=== PATIENT | female | born 1970 | race African-American/Black ===

== ENCOUNTER 2017-06-17 15:01 | Observation (INO) ==
[2017-06-17] MEDS ORDERED: NITROGLYCERIN SL 0.4 MG TABLET SL PRN (15:16)
[2017-06-17] MEDS ORDERED: ASPIRIN 325 MG TABLET PO STA (15:16)
[2017-06-17] MEDS ORDERED: ONDANSETRON 4 MG/2 ML VIAL IV PRN ×2 (15:16→18:49)
[2017-06-17] MEDS ORDERED: ENOXAPARIN 100 MG/ML SYRINGE SUBCUT STA (15:16)
[2017-06-17] MEDS ORDERED: NITROGLYCERIN 2% OINT 1 INCH/GM PACK TOP STA (15:16)
--- NOTE | 2017-06-17 15:22 | EKG Report ---
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
[2017-06-17] MEDS ORDERED: METOPROLOL TARTRATE 5 MG/5 ML VIAL IV SCH (15:30)
[2017-06-17] MEDS ORDERED: ENOXAPARIN 120 MG/0.8 ML SYRINGE SUBCUT ONE (15:44)
[2017-06-17] MEDS ORDERED: NITROGLYCERIN 2% OINT 1 INCH/GM PACK TOP ONE (15:44)
[2017-06-17] MEDS ORDERED: METOPROLOL TARTRATE 5 MG/5 ML VIAL IV ONE (15:44)
[2017-06-17] MEDS ORDERED: ASPIRIN 325 MG TABLET ONE (15:44)
--- NOTE | 2017-06-17 15:47 | XRay Report ---
XR chest 2V Indication: Chest pain. Comparison: Chest x-ray 11/18/2015 Technique: PA and lateral chest x-ray was performed. Findings: Heart size, mediastinal contour, and hilar structures demonstrate no significant abnormalities. The lung parenchyma is clear. Bones and soft tissues demonstrate no significant abnormalities. Impression: 1. No active cardiopulmonary disease. 06/17/2017 3:44 PM PROCEDURE INTERPRETED AT [facility] DEPARTMENT OF RADIOLOGY Final Report Signed by: Dr. Loyd Al
[2017-06-17 15:58] LABS: Basophils % 0.6 % (0.0-0.8); Eosinophils # 0.1 10*3/uL (0.0-0.87); Eosinophils % 0.8 % (0.00-10.9); Hematocrit 39.9 VOL% (35.7-47.0); Hemoglobin 13.3 GM/DL (12.0-16.0); Immature Granulocytes % 0.3 %; Immature Granulocytes Absolute 0.02 #; Lymphocytes # 2.1 10*3/uL (1.4-4.0); Mean Corpuscular HGB Conc 33.3 GM/DL (32-36); Mean Corpuscular Hemoglobin 29 PG (27-34); Mean Corpuscular Volume 87.9 FL (87-102); Monocytes # 0.3 10*3/uL (0.11-0.8); Monocytes % 5.4 % (1.7-12.7); Neutrophils # 3.7 10*3/uL (1.4-7.4); Neutrophils % 58.9 % (38.7-73.9); Platelet Count 294 T/CUMM (130-400); Red Blood Count 4.54 MC/CUMM (3.8-5.5); Red Cell Distribution Width 13.9 % (9.3-17.3); White Blood Count 6.3 T/CUMM (4-12)
[2017-06-17 16:19] LABS: PT Patient Result 10.9 SECS; Partial Thromboplastin Time 30.4 SECS (0-40)
[2017-06-17 16:31] LABS: Albumin 3.5 G/DL (3.4-5.0); Bilirubin,Total 0.4 MG/DL (0.2-1.0); Calcium 8.9 MG/DL (8.5-10.1); Osmolality,Calculated 275.5 MOS/KG (273-304); Potassium 4.1 MMOL/L (3.5-5.1); Total Protein 6.7 G/DL (6.4-8.3)
[2017-06-17] MEDS ORDERED: ALUM/MAG/SIMETH/LIDO VISC 1:1 30 ML BOTTLE PO STA (17:30)
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
[2017-06-17] MEDS ORDERED: ALUM/MAG/SIMETH/LIDO VISC 1:1 30 ML BOTTLE PO ONE (17:31)
[2017-06-17] MEDS ORDERED: ACETAMINOPHEN 325 MG TABLET PO PRN (18:49)
[2017-06-17 20:35] LABS: Free T4 (Free Thyroxine) 1.08 NG/DL (0.76-1.46); Thyroid Stimulating Hormone 0.915 uIU/ml (0.358-3.74)
[2017-06-17] MEDS: CARVEDILOL 6.25 MG TABLET PO SCH (20:48)
[2017-06-17 21:57] LABS: Bacteria,Urine Few /HPF (Few); Bilirubin,Urine Negative (Negative); Blood, Urine NEGATIVE (Negative); Glucose,Urine (UA) Negative (Negative); Ketones,Urine Negative (Negative); Mucus,Urine Occasional /LPF (Occasional); Nitrite,Urine Negative (Negative); Protein,Urine Negative; RBC,Urine <1 /HPF (0-4); Squamous Epithelial Cell,Urine Occasional /HPF (0-10); Urine Color Yellow (Yellow); Urine Specific Gravity 1.015 (1.001-1.035); WBC,Urine 1 /HPF (0-6)
[2017-06-17 21:58] LABS: Apearance,Urine Clear (Clear); Urine Urobilinogen 0.2 EU/DL (0.2-1.0)
[2017-06-17 21:59] LABS: Barbiturates Screen,Urine Negative (Negative); Benzodiazepines Screen,Urine Negative (Negative); Cannabinoid Screen,Urine Negative (Negative); Opiate Screen,Urine Negative (Negative); Phencyclidine Screen,Urine Negative (Negative)
--- NOTE | 2017-06-18 08:03 | EKG Report ---
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
[2017-06-18 08:33] LABS: Basophils # 0.1 10*3/uL (0.0-0.2); Basophils % 0.8 % (0.0-0.8); Eosinophils # 0.1 10*3/uL (0.0-0.87); Eosinophils % 1.3 % (0.00-10.9); Hematocrit 36.8 VOL% (35.7-47.0); Hemoglobin 12.2 GM/DL (12.0-16.0); Immature Granulocytes % 0.3 %; Immature Granulocytes Absolute 0.02 #; Lymphocytes % 33.9 % (21.3-54.2); Mean Corpuscular HGB Conc 33.2 GM/DL (32-36); Mean Corpuscular Hemoglobin 29 PG (27-34); Mean Platelet Volume 9.9 FL (9.6-12.0); Monocytes # 0.4 10*3/uL (0.11-0.8); Monocytes % 7.3 % (1.7-12.7); Neutrophils # 3.4 10*3/uL (1.4-7.4); Neutrophils % 56.4 % (38.7-73.9); Platelet Count 260 T/CUMM (130-400); Red Blood Count 4.18 MC/CUMM (3.8-5.5); Red Cell Distribution Width 13.8 % (9.3-17.3)
[2017-06-18] MEDS ORDERED: PANTOPRAZOLE 40 MG TABLET PO SCH (09:00)
[2017-06-18 09:07] LABS: Calcium 8.2 MG/DL (8.5-10.1); Magnesium 2.4 MG/DL (1.8-2.4); Osmolality,Calculated 275.5 MOS/KG (273-304); Potassium 4.2 MMOL/L (3.5-5.1)
--- NOTE | 2017-06-18 09:20 | Hospitalist Progress Note ---
Assessment and Plan (1) Chest pain Status: Acute Assessment and plan: Asymptomatic now EKG with sinus rhythm do not see any gross changes. Troponin 3 negative. Cardiology was consulted will follow recommendation Current Visit: Yes (2) Hypertension Status: Acute Assessment and plan: Blood pressure is controlled now Current Visit: Yes (3) AURY (obstructive sleep apnea) Status: Chronic Assessment and plan: On CPAP at bedtime Current Visit: Yes Hospitalist: Subjective Interval history: Ms. Matias is 46 female admitted with the chest pain. She she started having chest pain after she got upset and an argument with someone and having squeezing pain in midsternum which last about 20 minutes she came to the emergency room and was given some medications. She had some sharp pain last night again but no symptoms this morning. She had elevated blood pressure on presentation was started on beta-rosamaria. She has history of hypertension but had not been taking medication for about 2 years Exam - Constitutional Vitals: Period Temp Pulse Resp BP Sys/Darden Pulse Ox Last 24 Hr 96.2 F-97.9 F 63-87 16-22 108-267/56-125 94-100 General appearance: no acute distress, morbidly obese - Head Head exam: Present: normal inspection, normocephalic, atraumatic - Eye Eye exam: Present: EOMI Pupils: Present: ARCHANA - Respiratory Respiratory exam: Present: clear to auscultation bilaterally. Absent: rales, rhonchi - Cardiovascular Cardiovascular exam: Present: regular rate and rhythm. Absent: tachycardia - GI/Abdominal GI/Abdominal exam: Present: normal bowel sounds, soft. Absent: distended, tenderness - Extremities Exam Extremities exam: Present: normal inspection. Absent: edema - Neurological Exam Neurological exam: Present: alert, oriented X3 - Psychiatric Psychiatric exam: Present: normal affect, normal mood Results - Labs CBC & BMP: 06/18/17 08:15 06/18/17 08:15 Lab Results: I have reviewed the past 24 hour labs
[2017-06-18 09:27] LABS: Risk Ratio 3.92; VLDL CHOLESTEROL 10.8 MG/DL
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
--- NOTE | 2017-06-18 11:06 | Discharge Summary ---
Hospital Course - Hospital Course Hospital Course: Patient with history of hypertension anxiety GERD fibromyalgia morbid obesity and sleep apnea. She was admitted with the chest pain which was admitted to sternal area started after she had some argument at work associated with the diaphoresis shortness of breath and palpitation. She has pain lasted for 20 minutes until she came to the ER and received medications her blood pressure was also very high. She had not been on any medication for almost 2 years since she lost insurance in 2014. She got the insurance back in March 2017 but has not seen her provider yet. Her blood pressure was 183/110 one blood pressure reading was 1 267/125. Her heart rate was in 80s. She was received Nitropaste aspirin and metoprolol. Chest pain resolved had some sharp pain last night again but this morning she has been asymptomatic EKG was a sinus rhythm without any ischemic changes troponin has been negative 3. TSH and free T4 was within normal limit. Acute MA has been ruled out and patient seen by cardiology and plan to have a stress test as outpatient tomorrow patient to follow-up with Dr. Dubon after the stress test. 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 For hypertension I will continue carvedilol which was started at the time of admission she will need to monitor blood pressure at home. I have asked her to take aspirin daily but she does not want to take the aspirin - Time spent with patient Time with patient DS: Less than 30 minutes Diagnosis - Discharge Diagnosis (1) Chest pain Status: Acute (2) Hypertension Status: Chronic (3) AURY (obstructive sleep apnea) Status: Chronic Specialty Discharge - Follow Up or Referrals Follow up with: Javier Dubon MD [Physician] - (Please give the patient the following information: She is scheduled for Cardiolite stress test Monday, June 19, 2017 at cardiovascular [facility], third floor, 0745. Please arrive by 0730, NPO after midnight tonight , hold Coreg in the morning. Follow-up appoint with Dr. Javier Dubon, June 30, 2017 at 3:10 PM at [facility], fifth floor.) Tip Alejandro MD [Physician] - (Follow-up appoint with Dr. Alejandro in 2-3 weeks. Reason: Severe reflux) Discharge Plan - Discharge Data Disposition: Disch To Home/Self Care Condition at Discharge: Stable Discharge Diet: advance to your usual diet Activity: resume usual activities as tolerated - Discharge Medications New Pantoprazole Tab [Protonix Tab] 40 mg PO DAILY #30 tablet Carvedilol [Coreg] 6.25 mg PO BID #60 tablet - Follow Up or Referral Follow Up: Tip Alejandro MD [Physician] - (Follow-up appoint with Dr. Alejandro in 2-3 weeks. Reason: Severe reflux) Javier Dubon MD [Physician] - (Please give the patient the following information: She is scheduled for Cardiolite stress test Monday, June 19, 2017 at cardiovascular [facility], third floor, 0745. Please arrive by 0730, NPO after midnight tonight , hold Coreg in the morning. Follow-up appoint with Dr. Javier Dubon, June 30, 2017 at 3:10 PM at [facility], fifth floor.) - Forms/Instructions Exam - Constitutional Vitals: Period Temp Pulse Resp BP Sys/Darden Pulse Ox Last 24 Hr 96.2 F-97.9 F 63-87 16-22 108-267/56-125 94-100 General appearance: no acute distress, morbidly obese - Head Head exam: Present: normal inspection, normocephalic, atraumatic - Eye Eye exam: Present: EOMI Pupils: Present: ARCHANA - Respiratory Respiratory exam: Present: clear to auscultation bilaterally. Absent: rales, rhonchi - Cardiovascular Cardiovascular exam: Present: regular rate and rhythm. Absent: tachycardia - GI/Abdominal GI/Abdominal exam: Present: normal bowel sounds, soft. Absent: distended, tenderness - Extremities Exam Extremities exam: Present: normal inspection. Absent: edema - Neurological Exam Neurological exam: Present: alert, oriented X3 - Psychiatric Psychiatric exam: Present: normal affect, normal mood Results Discharge Results Labs on day of discharge: Labs from last 24 hours 06/18/17 06/18/17 06/18/17 08:15 08:15 08:15 WBC 6.0 RBC 4.18 Hgb 12.2 Hct 36.8 MCV 88.0 MCH 29 MCHC 33.2 RDW 13.8 Plt Count 260 MPV 9.9 Neut % (Auto) 56.4 Lymph % (Auto) 33.9 Granite % (Auto) 7.3 Eos % (Auto) 1.3 Baso % (Auto) 0.8 Neut # (Auto) 3.4 Lymph # (Auto) 2.0 Granite # (Auto) 0.4 Eos # (Auto) 0.1 Baso # (Auto) 0.1 Immature Gran % 0.3 Nucleated RBC % 0.0 Immature Gran # 0.02 Nucleated RBCs # 0.00 Immature Plt Fraction 0.0 INR PT Patient/Control Mix Circ Anticoag PTT Sodium 139 Potassium 4.2 Chloride 105 Carbon Dioxide 29 Anion Gap 9.2 BUN 9 Creatinine 0.90 GFR Calculation 132 BUN/Creatinine Ratio 10.00 Glucose 91 Calculated Osmolality 275.5 Calcium 8.2 L Magnesium 2.4 Total Bilirubin AST ALT Alkaline Phosphatase Troponin I Total Protein Albumin Globulin Albumin/Globulin Ratio Triglycerides 54 Cholesterol 149 LDL Cholesterol 94.0 VLDL Cholesterol 10.8 HDL Cholesterol 38 L Heart Disease Risk Ratio 3.92 Free T4 TSH 3rd Generation Urine Color Urine Appearance Urine pH Ur Specific Vader Urine Protein Urine Glucose (UA) Urine Ketones Urine Blood Urine Nitrate Urine Bilirubin Urine Urobilinogen Urine Leukocytes Urine RBC Urine WBC Ur Squamous Epith Cells Urine Bacteria Urine Mucus Ur Culture Indicated? Urine Opiates Screen Ur Barbiturates Screen Ur Phencyclidine Scrn U Amphetamine/Methamph U Benzodiazepines Scrn U Cocaine Metab Screen U Cannabinoids Screen 06/17/17 06/17/17 06/17/17 21:47 21:47 21:06 WBC RBC Hgb Hct MCV MCH MCHC RDW Plt Count MPV Neut % (Auto) Lymph % (Auto) Granite % (Auto) Eos % (Auto) Baso % (Auto) Neut # (Auto) Lymph # (Auto) Granite # (Auto) Eos # (Auto) Baso # (Auto) Immature Gran % Nucleated RBC % Immature Gran # Nucleated RBCs # Immature Plt Fraction INR PT Patient/Control Mix Circ Anticoag PTT Sodium Potassium Chloride Carbon Dioxide Anion Gap BUN Creatinine GFR Calculation BUN/Creatinine Ratio Glucose Calculated Osmolality Calcium Magnesium Total Bilirubin AST ALT Alkaline Phosphatase Troponin I < 0.015 Total Protein Albumin Globulin Albumin/Globulin Ratio Triglycerides Cholesterol LDL Cholesterol VLDL Cholesterol HDL Cholesterol Heart Disease Risk Ratio Free T4 TSH 3rd Generation Urine Color Yellow Urine Appearance Clear Urine pH 5.0 Ur Specific Vader 1.015 Urine Protein Negative Urine Glucose (UA) Negative Urine Ketones Negative Urine Blood Negative Urine Nitrate Negative Urine Bilirubin Negative Urine Urobilinogen 0.2 Urine Leukocytes Negative Urine RBC <1 Urine WBC 1 Ur Squamous Epith Cells Occasional Urine Bacteria Few Urine Mucus Occasional Ur Culture Indicated? Not indicated Urine Opiates Screen Negative Ur Barbiturates Screen Negative Ur Phencyclidine Scrn Negative U Amphetamine/Methamph Negative U Benzodiazepines Scrn Negative U Cocaine Metab Screen Negative U Cannabinoids Screen Negative 06/17/17 06/17/17 06/17/17 18:58 15:33 15:33 WBC RBC Hgb Hct MCV MCH MCHC RDW Plt Count MPV Neut % (Auto) Lymph % (Auto) Granite % (Auto) Eos % (Auto) Baso % (Auto) Neut # (Auto) Lymph # (Auto) Granite # (Auto) Eos # (Auto) Baso # (Auto) Immature Gran % Nucleated RBC % Immature Gran # Nucleated RBCs # Immature Plt Fraction INR 1.0 PT Patient/Control Mix 10.9 Circ Anticoag PTT 30.4 Sodium Potassium Chloride Carbon Dioxide Anion Gap BUN Creatinine GFR Calculation BUN/Creatinine Ratio Glucose Calculated Osmolality Calcium Magnesium Total Bilirubin AST ALT Alkaline Phosphatase Troponin I < 0.015 Total Protein Albumin Globulin Albumin/Globulin Ratio Triglycerides Cholesterol LDL Cholesterol VLDL Cholesterol HDL Cholesterol Heart Disease Risk Ratio Free T4 1.08 TSH 3rd Generation 0.915 Urine Color Urine Appearance Urine pH Ur Specific Vader Urine Protein Urine Glucose (UA) Urine Ketones Urine Blood Urine Nitrate Urine Bilirubin Urine Urobilinogen Urine Leukocytes Urine RBC Urine WBC Ur Squamous Epith Cells Urine Bacteria Urine Mucus Ur Culture Indicated? Urine Opiates Screen Ur Barbiturates Screen Ur Phencyclidine Scrn U Amphetamine/Methamph U Benzodiazepines Scrn U Cocaine Metab Screen U Cannabinoids Screen 06/17/17 06/17/17 06/17/17 15:33 15:33 15:33 WBC 6.3 RBC 4.54 Hgb 13.3 Hct 39.9 MCV 87.9 MCH 29 MCHC 33.3 RDW 13.9 Plt Count 294 MPV 10.0 Neut % (Auto) 58.9 Lymph % (Auto) 34.0 Granite % (Auto) 5.4 Eos % (Auto) 0.8 Baso % (Auto) 0.6 Neut # (Auto) 3.7 Lymph # (Auto) 2.1 Granite # (Auto) 0.3 Eos # (Auto) 0.1 Baso # (Auto) 0.0 Immature Gran % 0.3 Nucleated RBC % 0.0 Immature Gran # 0.02 Nucleated RBCs # 0.00 Immature Plt Fraction 0.0 INR PT Patient/Control Mix Circ Anticoag PTT Sodium 139 Potassium 4.1 Chloride 104 Carbon Dioxide 29 Anion Gap 10.1 BUN 9 Creatinine 0.90 GFR Calculation 128 BUN/Creatinine Ratio 10.00 Glucose 93 Calculated Osmolality 275.5 Calcium 8.9 Magnesium Total Bilirubin 0.40 AST 12 ALT 13 Alkaline Phosphatase 62 Troponin I < 0.015 Total Protein 6.7 Albumin 3.5 Globulin 3.2 Albumin/Globulin Ratio 1.0 L Triglycerides Cholesterol LDL Cholesterol VLDL Cholesterol HDL Cholesterol Heart Disease Risk Ratio Free T4 TSH 3rd Generation Urine Color Urine Appearance Urine pH Ur Specific Vader Urine Protein Urine Glucose (UA) Urine Ketones Urine Blood Urine Nitrate Urine Bilirubin Urine Urobilinogen Urine Leukocytes Urine RBC Urine WBC Ur Squamous Epith Cells Urine Bacteria Urine Mucus Ur Culture Indicated? Urine Opiates Screen Ur Barbiturates Screen Ur Phencyclidine Scrn U Amphetamine/Methamph U Benzodiazepines Scrn U Cocaine Metab Screen U Cannabinoids Screen DS: Provider Date of admission: 06/17/17 16:50 Primary care physician: . No PCP Attending physician on admission: Jonathan Mares MD Consults: 06/17/17 18:49 Consult to Physician [CONS] Routine Comment: chest pain Consulting Provider: Javier Dubon When should Consulting Provider be notified: In am Person Notified: INÉS Date Notified: 06/18/17 Time Notified: 08:00 Consult Notification Comment: 5 foot 5 inches 350 pounds chest tightness, SOB Hx: HTN but has not taken BP medications since 2014 (per patient: loss job and was unable to purchase) Discharging clinician: Rafat Cardoso MD
[2017-06-18] MEDS: CARVEDILOL 6.25 MG TABLET PO SCH (11:18)
[2017-06-18 11:41] VITALS: BP 139/85
[2017-06-18] MEDS ORDERED: ENOXAPARIN 40 MG/0.4 ML SYRINGE SUBCUT SCH (21:00)
== END 2017-06-18 12:34 | disposition home or self-care (01) ==
LOC: N.ED 15:01 → N.EDINP 15:01 → SUATTDRO 16:50 → N.2E 18:45
PROVIDERS: ADMIT Internal Medicine; ATTEND Internal Medicine